=== PATIENT | female | born 1990 | race Caucasian/White ===

== ENCOUNTER 2016-06-11 14:01 | Emergency (ER) | payer MEDICAID ==
[2016-06-11] MEDS ORDERED: NORMAL SALINE 1000 ML 1,000 ML IV PRN (14:34)
--- NOTE | 2016-06-11 14:34 | ER Document Report ---
ED Medical Screen (RME) - General Chief Complaint: Nausea/Vomiting Stated Complaint: STOMACH PAIN Notes: This 26-year-old female presented to the emergency room with cough generalized aches pains nausea vomiting since last p.m. she states that she feels as though she may have the flu. TRAVEL OUTSIDE OF THE [place] IN LAST 30 DAYS: No - Related Data Allergies/Adverse Reactions: latex [Latex] Allergy (Severe, Verified 06/11/16 14:31) Hives hydrocodone bitartrate [From Vicodin] Allergy (Intermediate, Verified 06/11/16 14:31) VOMITING,hives Past Medical History - Social History Chew tobacco use (# tins/day): No Frequency of alcohol use: None Drug Abuse: None - Past Medical History Cardiac Medical History: Denies: Hx Hypertension, Hx Pulmonary Embolism, Hx Heart Murmur Pulmonary Medical History: Denies: Hx Asthma, Hx Sleep Apnea, Hx Tuberculosis Neurological Medical History: Denies: Hx Cerebrovascular Accident, Hx Seizures Endocrine Medical History: Denies: Hx Hyperthyroidism, Hx Hypothyroidism Renal/ Medical History: Reports: Hx Kidney Stones - litho. Denies: Hx Ovarian Cysts, Hx Peritoneal Dialysis, Hx Pelvic Inflammatory Disease Malignancy Medical History: Denies: Hx Breast Cancer, Hx Cervical Cancer, Hx Ovarian Cancer GI Medical History: Reports: Hx Gastroesophageal Reflux Disease - with . Denies: Hx Hiatal Hernia, Hx Ulcer Musculoskeltal Medical History: Denies Hx Fibromyalgia Psychiatric Medical History: Denies: Hx Bipolar Disorder, Hx Depression, Hx Post Traumatic Stress Disorder , Hx Schizophrenia Traumatic Medical History: Denies: Hx Fractures Infectious Medical History: Denies: Hx HIV - Immunizations Immunizations up to date: Yes Hx Diphtheria, Pertussis, Tetanus Vaccination: No Physical Exam - Cardiovascular Rhythm: Tachycardia Heart sounds: Normal auscultation - Tachycardia
--- NOTE | 2016-06-11 16:19 | ER Document Report ---
ED General - General Chief Complaint: Nausea/Vomiting Stated Complaint: STOMACH PAIN Mode of Arrival: Ambulatory Information source: Patient Notes: This is a 26-year-old female who presents to the emergency room today stating that she feels as though she has a stomach virus/pretension leave the flu she's been nauseated has had a low-grade fever and she was vomiting through the evening last night 3. TRAVEL OUTSIDE OF THE [place] IN LAST 30 DAYS: No - HPI Onset: This morning - Related Data Allergies/Adverse Reactions: latex [Latex] Allergy (Severe, Verified 06/11/16 14:31) Hives hydrocodone bitartrate [From Vicodin] Allergy (Intermediate, Verified 06/11/16 14:31) VOMITING,hives Past Medical History - General Information source: Patient - Social History Smoking Status: Never Smoker Chew tobacco use (# tins/day): No Frequency of alcohol use: None Drug Abuse: None Family History: Reviewed & Not Pertinent Patient has suicidal ideation: No Patient has homicidal ideation: No - Past Medical History Cardiac Medical History: Denies: Hx Hypertension, Hx Pulmonary Embolism, Hx Heart Murmur Pulmonary Medical History: Denies: Hx Asthma, Hx Sleep Apnea, Hx Tuberculosis Neurological Medical History: Denies: Hx Cerebrovascular Accident, Hx Seizures Endocrine Medical History: Denies: Hx Hyperthyroidism, Hx Hypothyroidism Renal/ Medical History: Reports: Hx Kidney Stones - litho. Denies: Hx Ovarian Cysts, Hx Peritoneal Dialysis, Hx Pelvic Inflammatory Disease Malignancy Medical History: Denies: Hx Breast Cancer, Hx Cervical Cancer, Hx Ovarian Cancer GI Medical History: Reports: Hx Gastroesophageal Reflux Disease - with . Denies: Hx Hiatal Hernia, Hx Ulcer Musculoskeltal Medical History: Denies Hx Fibromyalgia Psychiatric Medical History: Denies: Hx Bipolar Disorder, Hx Depression, Hx Post Traumatic Stress Disorder , Hx Schizophrenia Traumatic Medical History: Denies: Hx Fractures Infectious Medical History: Denies: Hx HIV - Immunizations Immunizations up to date: Yes Hx Diphtheria, Pertussis, Tetanus Vaccination: No Review of Systems - Review of Systems Constitutional: No symptoms reported EENT: No symptoms reported Cardiovascular: No symptoms reported Respiratory: No symptoms reported Gastrointestinal: No symptoms reported Genitourinary: No symptoms reported Female Genitourinary: No symptoms reported Musculoskeletal: No symptoms reported Skin: No symptoms reported Hematologic/Lymphatic: No symptoms reported Neurological/Psychological: No symptoms reported Physical Exam - Vital signs Vitals: Pulse 98 06/11/16 16:08 Interpretation: Normal - General General appearance: Appears well, Alert - HEENT Head: Normocephalic, Atraumatic Eyes: Normal Pupils: PERRL - Respiratory Respiratory status: No respiratory distress Chest status: Nontender Breath sounds: Normal Chest palpation: Normal - Cardiovascular Rhythm: Regular Heart sounds: Normal auscultation Murmur: No - Abdominal Inspection: Normal Distension: No distension Bowel sounds: Normal Tenderness: Nontender Organomegaly: No organomegaly - Back Back: Normal, Nontender - Extremities General upper extremity: Normal inspection, Nontender, Normal color, Normal ROM , Normal temperature General lower extremity: Normal inspection, Nontender, Normal color, Normal ROM , Normal temperature, Normal weight bearing. No: Gustavo's sign - Neurological Neuro grossly intact: Yes Cognition: Normal Orientation: AAOx4 Reeds Coma Scale Eye Opening: Spontaneous Himanshu Coma Scale Verbal: Oriented Reeds Coma Scale Motor: Obeys Commands Himanshu Coma Scale Total: 15 Speech: Normal Motor strength normal: LUE, RUE, LLE, RLE Sensory: Normal - Psychological Associated symptoms: Normal affect, Normal mood - Skin Skin Temperature: Warm Skin Moisture: Dry Skin Color: Normal Course - Vital Signs Vital signs: Temp Pulse Resp BP Pulse Ox 98 06/11/16 16:08 - Transfer of Care Notes: 06/11/16 16:17 Patient feels better here in the department she did have a pulse of 116 1 L of fluid was ordered patient refused the fluids and stated she'd rather oral orally rehydrate which is what she had done here in the department she is not experiencing nausea or emesis be discharged with follow-up with her PMD in 2-3 days. Discharge - Discharge Clinical Impression: Nausea & vomiting Disposition: HOME, SELF-CARE Instructions: Vomiting ([facility]) Additional Instructions: Vomiting Vomiting can be part of many illnesses. Most cases of vomiting are due to gastroenteritis, usually a viral infection in the intestinal tract. There is no specific treatment. The disease will end by itself. For now, the main danger to your child is dehydration. During the first few hours of the illness, give clear liquids, such as Pedialyte. Try to give small quantities frequently, such as a teaspoon of liquid every minute or about an ounce of fluids every five to ten minutes. Medications may be prescribed by the physician for special cases. After an hour or two of fluids without vomiting, add rice cereal, toast, applesauce, or bananas and other more solid foods to the clear liquids. Call the physician or go to the hospital if vomiting increases or blood appears in the bowel movement or vomitus; if your child fails to improve, or if signs of dehydration occur (no wet diapers for eight to twelve hours, tongue and mouth become dry, not acting as alert as usual). Follow-up with private doctor in 1 to 2 days for final radiology readings please return to the emergency room for any change worsening condition. Follow up with private M.D. for all other routine health care needs. Prescriptions: Ondansetron [Zofran Odt 4 mg Tablet] 1 - 2 tab PO Q4H PRN #15 tab.rapdis PRN Reason: For Nausea/Vomiting
[2016-06-11 17:18] VITALS: BP 106/61
== END 2016-06-11 17:05 | disposition home or self-care (01) ==
LOC: ER 14:01
DX: R11.2 Nausea with vomiting, unspecified (principal); R50.9 Fever, unspecified; Z91.040 Latex allergy status; Z88.5 Allergy status to narcotic agent; Z87.442 Personal history of urinary calculi
CPT/HCPCS: 99284; 87804; J7030

== ENCOUNTER 2017-01-09 12:32 | Emergency (ER) | payer MEDICAID ==
--- NOTE | 2017-01-09 13:14 | ER Document Report ---
ED Medical Screen (RME) - General Chief Complaint: Abdominal Pain Stated Complaint: ABDOMINAL PAIN Time Seen by Provider: 01/09/17 13:12 Mode of Arrival: Ambulatory Information source: Patient Notes: This is a 26-year-old female who presents to the emergency room with left adnexal tenderness and swelling. Patient's last period was a month ago. She has taken multiple tests which have been negative. She denies any vaginal discharge. She denies any fever, chills. TRAVEL OUTSIDE OF THE [place] IN LAST 30 DAYS: No - Related Data Allergies/Adverse Reactions: latex [Latex] Allergy (Severe, Verified 01/09/17 12:38) Hives hydrocodone bitartrate [From Vicodin] Allergy (Intermediate, Verified 01/09/17 12:38) VOMITING,hives Past Medical History - Past Medical History Cardiac Medical History: Denies: Hx Hypertension, Hx Pulmonary Embolism, Hx Heart Murmur Pulmonary Medical History: Denies: Hx Asthma, Hx Sleep Apnea, Hx Tuberculosis Neurological Medical History: Denies: Hx Cerebrovascular Accident, Hx Seizures Endocrine Medical History: Denies: Hx Hyperthyroidism, Hx Hypothyroidism Renal/ Medical History: Reports: Hx Kidney Stones - litho. Denies: Hx Ovarian Cysts, Hx Peritoneal Dialysis, Hx Pelvic Inflammatory Disease Malignancy Medical History: Denies: Hx Breast Cancer, Hx Cervical Cancer, Hx Ovarian Cancer GI Medical History: Reports: Hx Gastroesophageal Reflux Disease - with . Denies: Hx Hiatal Hernia, Hx Ulcer Musculoskeltal Medical History: Denies Hx Fibromyalgia Psychiatric Medical History: Denies: Hx Bipolar Disorder, Hx Depression, Hx Post Traumatic Stress Disorder , Hx Schizophrenia Traumatic Medical History: Denies: Hx Fractures Infectious Medical History: Denies: Hx HIV - Immunizations Immunizations up to date: Yes Hx Diphtheria, Pertussis, Tetanus Vaccination: No Physical Exam - Vital signs Vitals: Temp Pulse Resp BP Pulse Ox 98.0 F 97 20 120/51 L 93 01/09/17 12:37 01/09/17 12:37 01/09/17 12:37 01/09/17 12:37 01/09/17 12:37 Course - Vital Signs Vital signs: Temp Pulse Resp BP Pulse Ox 98.0 F 97 20 120/51 L 93 01/09/17 12:37 01/09/17 12:37 01/09/17 12:37 01/09/17 12:37 01/09/17 12:37
[2017-01-09 13:53] LABS: AMORPHOUS SEDIMENT,URINE TRACE /HPF; APPEARANCE,URINE CLOUDY; BILIRUBIN,URINE NEGATIVE (NEGATIVE); GLUCOSE, URINE NEGATIVE (NEGATIVE); KETONES,URINE NEGATIVE (NEGATIVE); LEUKOCYTE ESTERASE,URINE NEGATIVE (NEGATIVE); NITRITE,URINE NEGATIVE (NEGATIVE); PROTEIN,URINE NEGATIVE (NEGATIVE); URINE SPECIFIC GRAVITY 1.017; UROBILINOGEN,URINE NEGATIVE mg/dL (<2.0)
--- NOTE | 2017-01-09 14:36 | ER Document Report ---
ED GI/ - General Chief Complaint: Abdominal Pain Stated Complaint: ABDOMINAL PAIN Time Seen by Provider: 01/09/17 13:12 Mode of Arrival: Ambulatory Information source: Patient TRAVEL OUTSIDE OF THE [place] IN LAST 30 DAYS: No - HPI Patient complains to provider of: Pelvic pain Timing/Duration: Persistent Quality of pain: Sharp, Stabbing Severity at maximum: Moderate Severity in ED: Moderate Pain Level: 3 Location: LLQ, Pelvis Vaginal bleeding (Compared to normal period): None Associated symptoms: None Exacerbated by: Denies Relieved by: Denies Similar symptoms previously: No Recently seen / treated by doctor: No Notes: 01/09/17 16:15 Patient is a 26-year-old female presenting to the emergency room complaining of sharp stabbing left sided pelvic pain that started earlier today, she reports that she is currently late for her menstrual cycle, with a last menstrual period being 1.5 months ago, she took 3 home tests and they were negative, she does report a history of ovarian cyst with similar symptoms previously, reports a clear vaginal discharge, no vaginal bleeding, no fever, does have occasional nausea associated with pain - Related Data Allergies/Adverse Reactions: latex [Latex] Allergy (Severe, Verified 01/09/17 12:38) Hives hydrocodone bitartrate [From Vicodin] Allergy (Intermediate, Verified 01/09/17 12:38) VOMITING,hives Past Medical History - General Information source: Patient - Social History Smoking Status: Never Smoker Chew tobacco use (# tins/day): No Frequency of alcohol use: None Drug Abuse: None Family History: Reviewed & Not Pertinent - Past Medical History Cardiac Medical History: Denies: Hx Hypertension, Hx Pulmonary Embolism, Hx Heart Murmur Pulmonary Medical History: Denies: Hx Asthma, Hx Sleep Apnea, Hx Tuberculosis Neurological Medical History: Denies: Hx Cerebrovascular Accident, Hx Seizures Endocrine Medical History: Denies: Hx Hyperthyroidism, Hx Hypothyroidism Renal/ Medical History: Reports: Hx Kidney Stones - litho. Denies: Hx Ovarian Cysts, Hx Peritoneal Dialysis, Hx Pelvic Inflammatory Disease Malignancy Medical History: Denies: Hx Breast Cancer, Hx Cervical Cancer, Hx Ovarian Cancer GI Medical History: Reports: Hx Gastroesophageal Reflux Disease - with . Denies: Hx Hiatal Hernia, Hx Ulcer Musculoskeltal Medical History: Denies Hx Fibromyalgia Psychiatric Medical History: Denies: Hx Bipolar Disorder, Hx Depression, Hx Post Traumatic Stress Disorder , Hx Schizophrenia Traumatic Medical History: Denies: Hx Fractures Infectious Medical History: Denies: Hx HIV Past Surgical History: Reports: Hx Section - Immunizations Immunizations up to date: Yes Hx Diphtheria, Pertussis, Tetanus Vaccination: No Review of Systems - Review of Systems Constitutional: No symptoms reported EENT: No symptoms reported Cardiovascular: No symptoms reported Respiratory: No symptoms reported Gastrointestinal: See HPI Genitourinary: No symptoms reported Female Genitourinary: See HPI Musculoskeletal: No symptoms reported Skin: No symptoms reported Hematologic/Lymphatic: No symptoms reported Neurological/Psychological: No symptoms reported -: Yes All other systems reviewed and negative Physical Exam - Vital signs Vitals: Temp Pulse Resp BP Pulse Ox 98.0 F 97 20 120/51 L 93 01/09/17 12:37 01/09/17 12:37 01/09/17 12:37 01/09/17 12:37 01/09/17 12:37 Interpretation: Normal - General General appearance: Appears well, Alert - HEENT Head: Normocephalic, Atraumatic Eyes: Normal Pupils: PERRL - Respiratory Respiratory status: No respiratory distress Chest status: Nontender Breath sounds: Normal Chest palpation: Normal - Cardiovascular Rhythm: Regular Heart sounds: Normal auscultation Murmur: No - Abdominal Inspection: Normal Distension: No distension Bowel sounds: Normal Tenderness: Tender - Tender to palpate in suprapubic area, mainly left side Organomegaly: No organomegaly - Back Back: Normal, Nontender - Extremities General upper extremity: Normal inspection, Nontender, Normal color, Normal ROM , Normal temperature General lower extremity: Normal inspection, Nontender, Normal color, Normal ROM , Normal temperature, Normal weight bearing. No: Gustavo's sign - Neurological Neuro grossly intact: Yes Cognition: Normal Orientation: AAOx4 Himanshu Coma Scale Eye Opening: Spontaneous [place] Coma Scale Verbal: Oriented [place] Coma Scale Motor: Obeys Commands Himanshu Coma Scale Total: 15 Speech: Normal Motor strength normal: LUE, RUE, LLE, RLE Sensory: Normal - Psychological Associated symptoms: Normal affect, Normal mood - Skin Skin Temperature: Warm Skin Moisture: Dry Skin Color: Normal Course - Re-evaluation Re-evalutation: 01/09/17 16:17 Lab and imaging findings were discussed with patient at bedside which are unremarkable except for a right-sided ovarian cyst, patient was offered pain medication which she declined, advised to follow-up with her primary care provider or return if symptoms worsen, patient acknowledges understanding and agreement with this plan - Vital Signs Vital signs: Temp Pulse Resp BP Pulse Ox 98.0 F 97 20 120/51 L 93 01/09/17 12:37 01/09/17 12:37 01/09/17 12:37 01/09/17 12:37 01/09/17 12:37 - Laboratory Laboratory results interpreted by me: 01/09/17 13:20 Urine Ascorbic Acid 20 H - Diagnostic Test Radiology reviewed: Image reviewed, Reports reviewed Discharge - Discharge Clinical Impression: Ovarian cyst Qualifiers: Laterality: right Qualified Code(s): N83.201 - Unspecified ovarian cyst, right side Condition: Stable Disposition: HOME, SELF-CARE Instructions: Abdominal Pain ([facility]), Pelvic Pain ([facility]) Additional Instructions: Follow up with your primary care provider in one to 2 days. Return to the emergency room immediately if symptoms worsen or any additional concerns.
--- NOTE | 2017-01-09 15:20 | RADIOLOGY REPORT (SQ) ---
EXAM DESCRIPTION: U/S NON OB PEL TV W/DOPPLER COMPLETED DATE/TIME: 01/09/2017 3:03 pm REASON FOR STUDY: left adnexal pain COMPARISON: None. TECHNIQUE: Dynamic and static grayscale images acquired of the pelvis via transvaginal approach and recorded on PACS. Additional selected color Doppler and spectral images recorded. LIMITATIONS: None. FINDINGS: UTERUS: Contour normal. No mass. ENDOMETRIAL STRIPE: No focal or generalized thickening. No masses. CERVIX: 3.5 cm. No nabothian cysts. RIGHT OVARY: There is at the 14 x 13 x 17 mm hypoechoic area in the right ovary. RIGHT OVARY DOPPLER: Normal arterial vascular flow without evidence for torsion. LEFT OVARY: No abnormal masses. LEFT OVARY DOPPLER: Normal arterial vascular flow without evidence for torsion. FREE FLUID: None noted. OTHER: No other significant finding. MEASUREMENTS: UTERUS: 9.6 x 5.6 x 4.5 cm ENDOMETRIAL STRIPE: 10 mm RIGHT OVARY: 5.3 x 2.5 x 2.9 cm LEFT OVARY: 2.4 x 1.8 x 3.2 cm IMPRESSION: There appears to be a small right ovarian cyst. Blood flow was present to each ovary. TECHNICAL DOCUMENTATION: JOB ID: [id number] [employer]- All Rights Reserved
[2017-01-09 16:34] VITALS: BP 115/102
== END 2017-01-09 16:25 | disposition home or self-care (01) ==
LOC: ER 12:32
DX: N83.201 Unspecified ovarian cyst, right side (principal); R10.9 Unspecified abdominal pain; R10.2 Pelvic and perineal pain
CPT/HCPCS: 76830; 81001; 81025; 93976; 99284

== ENCOUNTER 2017-07-28 18:10 | Emergency (ER) | payer SELFPAY ==
[2017-07-28] MEDS ORDERED: LIDOCAINE 2% VISCOUS SOLN 20 ML UDCUP PO ONE (20:50)
[2017-07-28] MEDS ORDERED: IBUPROFEN 800 MG TABLET PO ONE (20:50)
--- NOTE | 2017-07-28 20:56 | ER Document Report ---
HPI - HPI Patient complains to provider of: Sore throat, rhinitis Pain Level: 2 Context: Patient is a 27-year-old female presents emergency department complaining of multiple days of sore throat with associated runny nose. She states that she wanted to be evaluated for strep and she had a recent sick contact. Otherwise she has been taking TheraFlu at home with moderate improvement in her symptoms. She admits to subjective fevers denies any chills. She denies any nausea, vomiting, swelling, abdominal pain, chest pain. - REPRODUCTIVE Reproductive: DENIES: : Past Medical History - Social History Smoking Status: Smoker,Current Status Unk Family History: Reviewed & Not Pertinent - Past Medical History Cardiac Medical History: Denies: Hx Hypertension, Hx Pulmonary Embolism, Hx Heart Murmur Pulmonary Medical History: Denies: Hx Asthma, Hx Sleep Apnea, Hx Tuberculosis Neurological Medical History: Denies: Hx Cerebrovascular Accident, Hx Seizures Endocrine Medical History: Denies: Hx Hyperthyroidism, Hx Hypothyroidism Renal/ Medical History: Reports: Hx Kidney Stones - litho. Denies: Hx Ovarian Cysts, Hx Peritoneal Dialysis, Hx Pelvic Inflammatory Disease Malignancy Medical History: Denies: Hx Breast Cancer, Hx Cervical Cancer, Hx Ovarian Cancer GI Medical History: Reports: Hx Gastroesophageal Reflux Disease - with . Denies: Hx Hiatal Hernia, Hx Ulcer Musculoskeltal Medical History: Denies Hx Fibromyalgia Psychiatric Medical History: Denies: Hx Bipolar Disorder, Hx Depression, Hx Post Traumatic Stress Disorder , Hx Schizophrenia Traumatic Medical History: Denies: Hx Fractures Infectious Medical History: Denies: Hx HIV Past Surgical History: Reports: Hx Section - Immunizations Immunizations up to date: Yes Hx Diphtheria, Pertussis, Tetanus Vaccination: No Vertical Provider Document - CONSTITUTIONAL Agree With Documented VS: Yes Notes: PHYSICAL EXAM GENERAL: Alert, interacts well. HEENT: NCAT, pale conjunctiva, extraocular movements intact, pupils PERRL. external ear normal, no evidence of external auditory canal tenderness, blood/ drainage, cerumen impaction, TM intact without evidence of effusion, bulging, injection, MMM, Uvula midline. Airway patent. No evidence of tonsillar enlargement, peritonsillar abscess, retropharyngeal abscess. LUNGS: Clear to auscultation bilaterally, no wheezes, rales, or rhonchi. No respiratory distress. HEART: Regular rate and rhythm. No murmurs, gallops, or rubs. ABDOMEN: Soft, nondistended, nontender. No guarding, rebound, or rigidity.. Bowel sounds present in all 4 quadrants. EXTREMITIES: Moves all 4 extremities spontaneously. No edema, radial and dorsalis pedis pulses 2/4 bilaterally. No cyanosis. NEUROLOGICAL: Alert and oriented x4. Normal speech. PSYCH: Normal affect, normal mood. SKIN: Warm, dry, normal turgor. No rashes or lesions noted. - INFECTION CONTROL TRAVEL OUTSIDE OF THE [place] IN LAST 30 DAYS: No - RESPIRATORY O2 Sat by Pulse Oximetry: 100 Course - Re-evaluation Re-evalutation: 07/28/17 20:55 Patient is a 27-year-old female is hemodynamically stable, no acute distress and afebrile. Presentation is most consistent with a viral upper respiratory infection. Patient is overall well appearance, vitals within normal limits, well-hydrated. Patient denies any headache, neck pain, and has no evidence of meningismus on examination. Lungs are clear bilaterally. No evidence of respiratory distress. Based on clinical exam and history, I do not suspect an acute pneumonia, meningitis, strep pharyngitis, or an acute encephalitis. No laboratory or imaging testing is indicated at this time. Will discharge patient with return precautions and followup recommendations. They are in agreement this plan have verbalized understanding return precautions. - Vital Signs Vital signs: Temp Pulse Resp BP Pulse Ox 98.9 F 75 16 112/73 100 07/28/17 18:38 07/28/17 18:38 07/28/17 18:38 07/28/17 18:38 07/28/17 18:38 Discharge - Discharge Clinical Impression: URI (upper respiratory infection) Qualifiers: URI type: unspecified viral URI Qualified Code(s): J06.9 - Acute upper respiratory infection, unspecified Condition: Good Disposition: HOME, SELF-CARE Additional Instructions: Your symptoms are most likely due to a viral infection it should resolve over the next 7-14 days. You should take [id number] Claritin-D or Neelam-D per bottle instructions to help relieve from nasal secretions and congestion. For nasal congestion: I would recommend that you get [id number] oxymetazoline also known is afrin. Use only per bottle instructions and be sure to never use this for more than 3 days if you can develop severe rebound congestion. You may also use tylenol or ibuprofen as needed for aches and thorat discomfort. Please be sure to drink plenty of fluids and get rest. Return to the emergency department he began having difficulty breathing, chest pain, persistent vomiting, or any other symptoms that are concerning to you. Forms: Return to Work Referrals: MARISA BAUTISTA MD [ACTIVE STAFF] - Follow up in 1 week
[2017-07-28 21:08] VITALS: BP 112/67
== END 2017-07-28 21:08 | disposition home or self-care (01) ==
LOC: ER 18:10
DX: J06.9 Acute upper respiratory infection, unspecified (principal); J02.9 Acute pharyngitis, unspecified; J31.0 Chronic rhinitis; R09.89 Other specified symptoms and signs involving the circulatory and respiratory systems; R50.9 Fever, unspecified; F17.200 Nicotine dependence, unspecified, uncomplicated
CPT/HCPCS: 99283; 87070; 87880; J3490

== ENCOUNTER 2017-11-15 14:28 | Emergency (ER) | payer SELFPAY ==
[2017-11-15 14:36] VITALS: BP 122/71
[2017-11-15] MEDS ORDERED: ALBUTEROL SULFATE 0.083% NEB 2.5 MG/3 ML AMPUL NEB ONE (14:52)
--- NOTE | 2017-11-15 14:52 | ER Document Report ---
HPI - HPI Patient complains to provider of: Cough and nasal congestion Onset: Last week Onset/Duration: Gradual Pain Level: 2 Context: 27-year-old is complaining of nasal congestion and cough for a week. She has been working every day. No chest pain or shortness of breath. No history of asthma. No sinus pain. Associated Symptoms: None Exacerbated by: Denies Relieved by: Denies - ROS ROS below otherwise negative: Yes Systems Reviewed and Negative: Yes All other systems reviewed and negative - REPRODUCTIVE Reproductive: DENIES: : Past Medical History - General Information source: Patient - Social History Smoking Status: Unknown if Ever Smoked Drug Abuse: None Lives with: Family Family History: Reviewed & Not Pertinent Renal/ Medical History: Reports: Hx Kidney Stones - litho GI Medical History: Reports: Hx Gastroesophageal Reflux Disease - with Past Surgical History: Reports: Hx Section - Immunizations Immunizations up to date: Yes Hx Diphtheria, Pertussis, Tetanus Vaccination: No Vertical Provider Document - CONSTITUTIONAL Agree With Documented VS: Yes Exam Limitations: No Limitations General Appearance: No Apparent Distress - INFECTION CONTROL TRAVEL OUTSIDE OF THE [place] IN LAST 30 DAYS: No - HEENT HEENT: Pharyngeal Erythema - Normal. negative: Conjuctival Injection, Tympanic Membrane Red, Tympanic Membrane Bulging Notes: Boggy naris, nontender sinus - NECK Neck: Supple - RESPIRATORY Respiratory: Breath Sounds Normal, No Respiratory Distress - CARDIOVASCULAR Cardiovascular: Regular Rate, Regular Rhythm - NEURO Level of Consciousness: Alert - DERM Integumentary: No Rash Course - Re-evaluation Re-evalutation: 11/15/17 Patient states that the albuterol nebulizer helped a little bit and she feels like she can breathe easier. - Vital Signs Vital signs: Temp Pulse Resp BP Pulse Ox 98.5 F 74 18 122/71 100 11/15/17 14:33 11/15/17 14:33 11/15/17 14:33 11/15/17 14:33 11/15/17 14:33 Discharge - Discharge Clinical Impression: Bronchitis Condition: Good Disposition: HOME, SELF-CARE Instructions: Bronchitis ([facility]), Bronchodilators ([facility]) Additional Instructions: Drink plenty of fluids Rest Use the albuterol metered-dose inhaler every 4 hours cough Return to the emergency room for worsening of the symptoms Prescriptions: Albuterol Sulfate [Proair HFA Inhalation Aerosol 8.5 gm MDI] 2 puff IH Q3HP PRN #1 hfa.[id number].[email or web address] PRN Reason: Forms: Return to Work
== END 2017-11-15 15:34 | disposition home or self-care (01) ==
LOC: ER 14:28
DX: J40 Bronchitis, not specified as acute or chronic (principal)
CPT/HCPCS: 94640; 99283

== ENCOUNTER 2018-11-14 17:19 | Emergency (ER) | payer OTHER ==
[2018-11-14 17:24] VITALS: BP 128/76
[2018-11-14] MEDS ORDERED: IBUPROFEN 600 MG TABLET PO ONE (17:32)
--- NOTE | 2018-11-14 17:33 | ER Document Report ---
Addendum entered and electronically signed by YURI WOOD NP 11/14/18 18:57: Discharge - Discharge Clinical Impression: Right ankle sprain Qualifiers: Encounter type: initial encounter Involved ligament of ankle: unspecified ligament Qualified Code(s): S93.401A - Sprain of unspecified ligament of right ankle, initial encounter Condition: Stable Disposition: HOME, SELF-CARE Instructions: Ankle Stirrup Splint ([facility]), Use of Crutches ([facility]), Ice & Elevation ([facility]), Sprained Ankle ([facility]) Additional Instructions: Return immediately for any new or worsening symptoms Followup with your primary care provider, call tomorrow to make a followup appointment Weightbearing as tolerated Follow-up with orthopedics for any persistent pain or problems Prescriptions: Naproxen [Naprosyn 250 Nmg Tablet] 1 tab PO BID #14 tablet Forms: Return to Work Referrals: [facility] ([facility]) [Provider Group] - Follow up as needed Original Note: HPI - HPI Patient complains to provider of: ankle injury Time Seen by Provider: 11/14/18 17:28 Onset: Yesterday Onset/Duration: Sudden Quality of pain: Achy Pain Level: 2 Context: Patient reports yesterday slipping on water and hitting her ankle against a refrigerator. Patient with mild abrasion overlying the right ankle. Patient complains of lateral ankle pain with walking. Associated Symptoms: Other - r ankle pain Exacerbated by: Standing, Walking Relieved by: Denies Similar symptoms previously: No Recently seen / treated by doctor: No - ROS ROS below otherwise negative: Yes Systems Reviewed and Negative: Yes All other systems reviewed and negative - NEURO Neurology: DENIES: Weakness - REPRODUCTIVE Reproductive: DENIES: : - MUSCULOSKELETAL Musculoskeletal: REPORTS: Extremity pain - DERM Skin Color: Normal Skin Problems: Abrasion Past Medical History - General Information source: Patient - Social History Smoking Status: Never Smoker Frequency of alcohol use: None Drug Abuse: None Occupation: Retail Family History: Reviewed & Not Pertinent Renal/ Medical History: Reports: Hx Kidney Stones - litho GI Medical History: Reports: Hx Gastroesophageal Reflux Disease - with Past Surgical History: Reports: Hx Section - Immunizations Immunizations up to date: Yes Hx Diphtheria, Pertussis, Tetanus Vaccination: No Vertical Provider Document - CONSTITUTIONAL Agree With Documented VS: Yes Exam Limitations: No Limitations General Appearance: WD/WN, No Apparent Distress - INFECTION CONTROL TRAVEL OUTSIDE OF THE [place] IN LAST 30 DAYS: No - HEENT HEENT: Atraumatic, Normocephalic - NECK Neck: Normal Inspection - RESPIRATORY Respiratory: No Respiratory Distress - CARDIOVASCULAR Pulses: Normal: Dorsalis pedis - MUSCULOSKELETAL/EXTREMETIES Musculoskeletal/Extremeties: MAEW, FROM, Tender - Right ankle tenderness over lateral malleolar area, no edema, mild abrasion, no surrounding erythema - NEURO Level of Consciousness: Awake, Alert, Appropriate Motor/Sensory: No Motor Deficit - DERM Integumentary: Warm, Dry Course - Re-evaluation Re-evalutation: 11/14/18 18:18 Patient refused crutches. - Vital Signs Vital signs: Temp Pulse Resp BP Pulse Ox 98.3 F 85 18 128/76 H 100 11/14/18 17:23 11/14/18 17:23 11/14/18 17:23 11/14/18 17:23 11/14/18 17:23 - Diagnostic Test Radiology reviewed: Pending, Image reviewed Procedures - Immobilization Right Ankle Pre-Proc Neuro Vasc Exam: Normal Immobilizer type: Ankle stirrup Performed by: PCT Post-Proc Neuro Vasc Exam: Normal Alignment checked and good: Yes Discharge - Discharge Clinical Impression: Right ankle sprain Qualifiers: Encounter type: initial encounter Involved ligament of ankle: unspecified ligament Qualified Code(s): S93.401A - Sprain of unspecified ligament of right ankle, initial encounter Condition: Stable Disposition: HOME, SELF-CARE Instructions: Ankle Stirrup Splint ([facility]), Use of Crutches ([facility]), Ice & Elevation ([facility]), Sprained Ankle ([facility]) Additional Instructions: Return immediately for any new or worsening symptoms Followup with your primary care provider, call tomorrow to make a followup appointment Weightbearing as tolerated Follow-up with orthopedics for any persistent pain or problems Prescriptions: Naproxen [Naprosyn 250 Nmg Tablet] 1 tab PO BID #14 tablet Referrals: [facility] ([facility] [Provider Group] - Follow up as needed
--- NOTE | 2018-11-14 18:03 | RADIOLOGY REPORT (SQ) ---
EXAM DESCRIPTION: ANKLE RIGHT COMPLETE COMPLETED DATE/TIME: 11/14/2018 5:50 pm REASON FOR STUDY: fall, r ankle pain COMPARISON: None. NUMBER OF VIEWS: Three views. TECHNIQUE: AP, lateral, and oblique radiographic images acquired of the right ankle. LIMITATIONS: None. FINDINGS: MINERALIZATION: Normal. BONES: No acute fracture or dislocation. No worrisome bone lesions. JOINTS: No effusions. SOFT TISSUES: No soft tissue swelling. No foreign body. OTHER: No other significant finding. IMPRESSION: NEGATIVE STUDY OF THE RIGHT ANKLE. NO RADIOGRAPHIC EVIDENCE OF ACUTE INJURY. TECHNICAL DOCUMENTATION: JOB ID: [id number] [employer]- All Rights Reserved Reading location - IP/workstation name: [email or web address]
== END 2018-11-14 18:14 | disposition home or self-care (01) ==
LOC: ER 17:19
DX: S93.401A Sprain of unspecified ligament of right ankle, initial encounter (principal); W22.09XA Striking against other stationary object, initial encounter; Y99.0 Civilian activity done for income or pay
CPT/HCPCS: 99283; 73610; L1902

== ENCOUNTER 2019-01-20 14:36 | Emergency (ER) | payer SELFPAY ==
[2019-01-20] MEDS ORDERED: IBUPROFEN 800 MG TABLET PO ONE (16:15)
[2019-01-20] MEDS ORDERED: PSEUDOEPHEDRINE HCL 30 MG TABLET PO ONE (16:15)
--- NOTE | 2019-01-20 16:16 | ER Document Report ---
HPI - HPI Patient complains to provider of: cold symptoms Time Seen by Provider: 01/20/19 16:10 Onset: Yesterday Onset/Duration: Gradual Quality of pain: Achy Pain Level: 3 Context: Patient presents complaining of cold or flu symptoms. Patient states she has had voice hoarseness body aches sore throat ear pain and productive cough since yesterday. Associated Symptoms: Nonproductive cough, Earache, Fever, Rhinnorhea, Sore throat. denies: Nausea, Vomiting Exacerbated by: Denies Relieved by: Denies Similar symptoms previously: Yes Recently seen / treated by doctor: No - ROS ROS below otherwise negative: Yes Systems Reviewed and Negative: Yes All other systems reviewed and negative - CONSTITUTIONAL Constitutional: REPORTS: Fever - subjective, Chills - EENT EENT: REPORTS: Sore Throat, Ear Pain, Nasal Drainage-Clear - NEURO Neurology: DENIES: Headache - RESPIRATORY Respiratory: REPORTS: Coughing. DENIES: Trouble Breathing - GASTROINTESTINAL Gastrointestinal: DENIES: Patient vomiting, Diarrhea - REPRODUCTIVE Reproductive: DENIES: : - DERM Skin Color: Normal Skin Problems: None Past Medical History - General Information source: Patient - Social History Smoking Status: Never Smoker Frequency of alcohol use: None Drug Abuse: None Occupation: retail Family History: Reviewed & Not Pertinent - Medical History Medical History: Negative Renal/ Medical History: Reports: Hx Kidney Stones - litho GI Medical History: Reports: Hx Gastroesophageal Reflux Disease - with Past Surgical History: Reports: Hx Section - Immunizations Immunizations up to date: Yes Hx Diphtheria, Pertussis, Tetanus Vaccination: No Vertical Provider Document - CONSTITUTIONAL Agree With Documented VS: No - Pt not tachycardic Exam Limitations: No Limitations General Appearance: WD/WN, No Apparent Distress - INFECTION CONTROL TRAVEL OUTSIDE OF THE [place] IN LAST 30 DAYS: No - HEENT HEENT: Atraumatic, Normocephalic, Pharyngeal Tenderness, Pharyngeal Erythema. negative: Pharyngeal Exudate, Tympanic Membrane Red, Tympanic Membrane Bulging Notes: clear rhinorrhea - NECK Neck: Normal Inspection, Supple - RESPIRATORY Respiratory: Breath Sounds Normal, No Respiratory Distress - CARDIOVASCULAR Cardiovascular: Regular Rate, Regular Rhythm, No Murmur. negative: Tachycardia - GI/ABDOMEN Gastrointestinal: Abdomen Soft - BACK Back: Normal Inspection - MUSCULOSKELETAL/EXTREMETIES Musculoskeletal/Extremeties: JENNIFER LIZ - NEURO Level of Consciousness: Awake, Alert, Appropriate Motor/Sensory: No Motor Deficit - DERM Integumentary: Warm, Dry, No Rash Course - Re-evaluation Re-evalutation: 01/20/19 17:22 Respirations even unlabored, patient nontoxic in appearance. Will treat for likely viral URI at this time. Good return precautions discussed. - Vital Signs Vital signs: Temp Pulse Resp BP Pulse Ox 99.1 F 100 18 112/70 100 01/20/19 15:52 01/20/19 15:52 01/20/19 15:52 01/20/19 15:52 01/20/19 15:52 - Laboratory Laboratory results interpreted by me: 01/20/19 17:20 Labs- Entire Visit 01/20/19 01/20/19 16:14 16:25 Influenza A (Rapid) NEGATIVE Influenza B (Rapid) NEGATIVE Group A Strep Rapid NEGATIVE Discharge - Discharge Clinical Impression: Sore throat Upper respiratory infection Qualifiers: URI type: unspecified URI Qualified Code(s): J06.9 - Acute upper respiratory infection, unspecified Condition: Stable Disposition: HOME, SELF-CARE Instructions: Acetaminophen, Sore Throat ([facility]), Upper Respiratory Illness ([facility]) Additional Instructions: Return immediately for any new or worsening symptoms Followup with your primary care provider, call tomorrow to make a followup appointment Throat culture is pending, we will call if you need any different treatment Prescriptions: Guaifenesin/Pseudoephedrne HCl [Mucinex D ER 1,200-120 mg Tab] 1 each PO Q12 PRN #12 tab.er.12h PRN Reason: Naproxen [Naprosyn 250 Nmg Tablet] 1 tab PO BID #14 tablet Forms: Return to Work Referrals: [facility] [Provider Group] - Follow up as needed [facility] [Provider Group] - Follow up as needed
[2019-01-20 17:11] LABS: A TYPE INFLUENZA AG NEGATIVE (NEGATIVE); B INFLUENZA AG NEGATIVE (NEGATIVE)
[2019-01-20 17:43] VITALS: BP 118/78
== END 2019-01-20 17:46 | disposition home or self-care (01) ==
LOC: ER 14:36
DX: J06.9 Acute upper respiratory infection, unspecified (principal); J02.9 Acute pharyngitis, unspecified; R49.0 Dysphonia; M79.10 Myalgia, unspecified site; H92.09 Otalgia, unspecified ear; R05 Cough; R09.89 Other specified symptoms and signs involving the circulatory and respiratory systems
CPT/HCPCS: 87070; 87804; 87880

== ENCOUNTER 2019-01-25 14:51 | Emergency (ER) | payer SELFPAY ==
[2019-01-25 15:01] VITALS: BP 116/69
--- NOTE | 2019-01-25 15:41 | ER Document Report ---
HPI - HPI Time Seen by Provider: 01/25/19 15:19 Pain Level: 4 Notes: Patient is a 28-year-old female no significant past medical history who presents complaining of nasal congestion/discharge, dry nonproductive cough over the past 6 days. She was seen 5 days ago and had a negative rapid strep and negative culture. She was diagnosed with a viral illness. Patient states that she has been using Mucinex with minimal relief. Patient states that she does have some hoarseness along with the cough and works 14-hour days and the cough is getting annoying. Patient is concerned that she may have pneumonia and wants an x-ray performed. She is otherwise eating and drinking without difficulty. She is urinating normally. Denies any headache, fever, neck pain, sore throat, chest pain, palpitations, syncope, shortness of breath, wheeze, dyspnea, abdominal pain, nausea/vomiting/diarrhea, urinary retention, dysuria, hematuria, or rash. - ROS Systems Reviewed and Negative: Yes All other systems reviewed and negative - CONSTITUTIONAL Constitutional: DENIES: Fever, Chills - REPRODUCTIVE Reproductive: DENIES: : Past Medical History - Social History Smoking Status: Former Smoker Family History: Reviewed & Not Pertinent Patient has suicidal ideation: No Patient has homicidal ideation: No - Past Medical History Cardiac Medical History: Denies: Hx Hypertension, Hx Pulmonary Embolism, Hx Heart Murmur Pulmonary Medical History: Denies: Hx Asthma, Hx Sleep Apnea, Hx Tuberculosis Neurological Medical History: Denies: Hx Cerebrovascular Accident, Hx Seizures Endocrine Medical History: Denies: Hx Hyperthyroidism, Hx Hypothyroidism Renal/ Medical History: Reports: Hx Kidney Stones - litho. Denies: Hx Ovarian Cysts, Hx Peritoneal Dialysis, Hx Pelvic Inflammatory Disease Malignancy Medical History: Denies: Hx Breast Cancer, Hx Cervical Cancer, Hx Ovarian Cancer GI Medical History: Reports: Hx Gastroesophageal Reflux Disease - with . Denies: Hx Hiatal Hernia, Hx Ulcer Musculoskeletal Medical History: Denies Hx Fibromyalgia Psychiatric Medical History: Denies: Hx Bipolar Disorder, Hx Depression, Hx Post Traumatic Stress Disorder, Hx Schizophrenia Traumatic Medical History: Denies: Hx Fractures Infectious Medical History: Denies: Hx HIV Past Surgical History: Reports: Hx Section - Immunizations Immunizations up to date: Yes Hx Diphtheria, Pertussis, Tetanus Vaccination: No Vertical Provider Document - CONSTITUTIONAL Agree With Documented VS: Yes Notes: PHYSICAL EXAMINATION: GENERAL: Well-appearing, well-nourished and in no acute distress. A&Ox4. Answers questions appropriately. Moves comfortably w/o notable distress HEAD: Atraumatic, normocephalic. EYES: Pupils equal round and reactive to light, extraocular movements intact, sclera anicteric, conjunctiva are normal. ENT: EAC clear b/l. TM's intact b/l without erythema, fluid, or perforation. Nares patent and without discharge. oropharynx no erythema without exudates. No tonsilar hypertrophy without erythema or exudate. No palatine shift. Uvula midline. No tongue protrusion. No drooling, hoarseness, or airway compromise. Moist mucous membranes. No sinus tenderness. NECK: Normal range of motion, supple without lymphadenopathy. No rigidity/meningismus. LUNGS: Breath sounds clear to auscultation bilaterally and equal. No wheezes rales or rhonchi. No retractions HEART: Regular rate and rhythm without murmurs, rubs, gallops. ABDOMEN: Soft, nontender, nondistended abdomen. No guarding, no rebound. Normal bowel sounds present. No CVA tenderness bilaterally. NEUROLOGICAL: Normal speech, normal gait. PSYCH: Normal mood, normal affect. SKIN: Warm, Dry, normal turgor, no rashes or lesions noted. - INFECTION CONTROL TRAVEL OUTSIDE OF THE [place] IN LAST 30 DAYS: No Course - Re-evaluation Re-evalutation: 01/25/19 Patient is an afebrile, well-hydrated, 28-year-old female who presents to the ED with acute URI, suspect viral. Vitals are acceptable. PE is otherwise unremarkable. Chest x-ray unremarkable. No other labs or imaging warranted at this time based on H&P. Patient has no significant cardiopulmonary or immunocompromised medical conditions. Patient's lungs are clear to auscultation bilaterally without tachycardia, hypoxia, or tachypnea. Patient is tolerating p.o. without any difficulties. Low suspicion for any meningitis, sepsis, peritonsillar/pharyngeal abscess, respiratory compromise, severe dehydration, or other emergent systemic condition at this time. Patient is aware this condition can change from initial presentation and she needs to monitor symptoms closely. We will send her home with prescription for Tessalon and steroid taper. Conservative measures otherwise for symptoms. Recheck with your PCM in 3-5 days. Return to the ED with any worsening/concerning symptoms otherwise as reviewed in discharge. Patient is in agreement. - Vital Signs Vital signs: Temp Pulse Resp BP Pulse Ox 98.6 F 73 16 116/69 100 01/25/19 15:00 01/25/19 15:00 01/25/19 15:00 01/25/19 15:00 01/25/19 15:00 Discharge - Discharge Clinical Impression: Acute URI Condition: Stable Disposition: HOME, SELF-CARE Instructions: Upper Respiratory Illness ([facility]) Additional Instructions: Maintain adequate fluid intake tylenol/ibuprofen as needed alternating every 3 hours for fever/body ache over the counter cold medication as needed for symptoms Humidified air may help Wash your hands regularly Wear a mask when coughing F/u: with your PCM in 3-5 days for a recheck Return to the ED with any fever, altered mental status/behavior, chest pain, palpitations, syncope, headache, neck pain/stiffness, shortness of breath, chest pains, wheezing, drooling, trouble swallowing/breathing, abdominal pain, n/v/d, rash, or worsening/concerning symptoms otherwise. Prescriptions: Benzonatate [Tessalon Perle 100 mg Capsule] 100 mg PO Q8HP PRN #15 cap PRN Reason: Prednisone [Deltasone 10 mg Tablet] 10 mg PO DAILY #18 tablet Forms: Return to Work Referrals: [facility] [Provider Group] - Follow up as needed
--- NOTE | 2019-01-25 16:10 | RADIOLOGY REPORT (SQ) ---
EXAM DESCRIPTION: CHEST 2 VIEWS COMPLETED DATE/TIME: 01/25/2019 3:59 pm REASON FOR STUDY: cough COMPARISON: 12/04/2014. EXAM PARAMETERS: NUMBER OF VIEWS: two views TECHNIQUE: Digital Frontal and Lateral radiographic views of the chest acquired. RADIATION DOSE: NA LIMITATIONS: none FINDINGS: LUNGS AND PLEURA: No opacities, masses or pneumothorax. No pleural effusion. MEDIASTINUM AND HILAR STRUCTURES: No masses or contour abnormalities. HEART AND VASCULAR STRUCTURES: Heart normal size. No evidence for failure. BONES: No acute findings. HARDWARE: None in the chest. OTHER: No other significant finding. IMPRESSION: NO ACUTE RADIOGRAPHIC FINDING IN THE CHEST. TECHNICAL DOCUMENTATION: JOB ID: [id number] [employer]- All Rights Reserved Reading location - IP/workstation name: [email or web address]
== END 2019-01-25 16:30 | disposition home or self-care (01) ==
LOC: ER 14:51
DX: J06.9 Acute upper respiratory infection, unspecified (principal); R09.81 Nasal congestion; Z87.442 Personal history of urinary calculi
CPT/HCPCS: 71046; 99283

== ENCOUNTER → 2019-05-24 | Outpatient (CLI) | payer SELFPAY ==
--- NOTE | 2019-05-24 14:02 | RADIOLOGY REPORT (SQ) ---
EXAM DESCRIPTION: U/S [id number] TRNABD 1GES W/ODOP COMPLETED DATE/TIME: 05/24/2019 1:14 pm REASON FOR STUDY: ENCTR FOR SUPERVISION OF OTHER NORMAL , 1ST TRIMESTER (Z34.81) Z34.81 EN COUNTER FOR SUPRVSN OF NORMAL , FIRST TRIM COMPARISON: None. TECHNIQUE: Transabdominal static and realtime grayscale images acquired of the pelvis. Additional se lected spectral and color Doppler images recorded. All images stored on PACs. [facility]: Not available. CLINICAL DATES: Unknown. LIMITATIONS: None. FINDINGS: FETUS: Single Living intrauterine . ULTRASOUND EGA: 10 weeks 3 days. ULTRASOUND AGUSTIN: 12/17/2019 EFW: Not applicable less than 20 weeks. CRL: 3.58 cm. FHR: 163 beats per minute. AMNIOTIC FLUID: Adequate amount. PLACENTA: Not yet developed due to early gestation. SUBCHORIONIC BLEED: No. SIZE OF BLEED: Not applicable. UTERUS: No masses. No anomalies. CERVICAL LENGTH: 2.1 cm. Closed. RIGHT ADNEXA: Normal ovary with normal vascular flow. No adnexal free fluid. No adnexal masses. LEFT ADNEXA: Normal ovary with normal vascular flow. No adnexal free fluid. No adnexal masses. FREE FLUID: None. OTHER: No other significant finding. IMPRESSION: LIVING INTRAUTERINE . EGA 10 WEEKS 3 DAYS. Trimester of : First trimester - 0 to 13 weeks. TECHNICAL DOCUMENTATION: JOB ID: [id number] [employer]- All Rights Reserved rev Reading location - IP/workstation name: [email or web address]
== END ==
LOC: RAD 12:43
PROVIDERS: ATTEND Midwife
DX: Z34.81 Encounter for supervision of other normal pregnancy, first trimester (principal); Z3A.10 10 weeks gestation of pregnancy
CPT/HCPCS: 76801

== ENCOUNTER 2019-05-30 04:34 | Emergency (ER) | payer SELFPAY ==
[2019-05-30 05:34] LABS: A TYPE INFLUENZA AG NEGATIVE (NEGATIVE); B INFLUENZA AG POSITIVE (NEGATIVE)
[2019-05-30] MEDS ORDERED: OSELTAMIVIR PHOSPHATE 75 MG CAPSULE PO ONE (07:53)
[2019-05-30] MEDS ORDERED: ONDANSETRON 4 MG TAB.RAPDIS PO ONE (08:00)
[2019-05-30 08:19] VITALS: BP 114/66
--- NOTE | 2019-05-31 11:17 | ER Document Report ---
Entered by MARGARITO FONTAINE SCRIBE 05/30/19 0807 Acting as scribe for:JOEZF VARELA IV, MD ED General - General Chief Complaint: Flu Symptoms Stated Complaint: FLU SYMPTOMS Time Seen by Provider: 05/30/19 07:39 Primary Care Provider: GENEVA BRAUN MD [ACTIVE STAFF] - Follow up as needed Notes: This 29 year old female patient presents to the emergency department today with complaints of flu-like symptoms for the past 3 days. Patient has complaints of a cough, congestion, runny nose, and fever. Patient is 11 weeks and was exposed by her daughter having the flu from her daycare. TRAVEL OUTSIDE OF THE [place] IN LAST 30 DAYS: No - Related Data Allergies/Adverse Reactions: latex [Latex] Allergy (Severe, Verified 01/20/19 14:37) Hives hydrocodone bitartrate [From Vicodin] Allergy (Intermediate, Verified 01/20/19 14:37) VOMITING,hives Home Medications: vitamins Past Medical History - General Information source: Patient - Social History Smoking Status: Never Smoker Family History: Reviewed & Not Pertinent Patient has suicidal ideation: No Patient has homicidal ideation: No Renal/ Medical History: Reports: Hx Kidney Stones - litho GI Medical History: Reports: Hx Gastroesophageal Reflux Disease - with Past Surgical History: Reports: Hx Section - Immunizations Immunizations up to date: Yes Hx Diphtheria, Pertussis, Tetanus Vaccination: No Review of Systems - Review of Systems Constitutional: See HPI, Fever EENT: See HPI, Nose congestion, Nose discharge Cardiovascular: No symptoms reported Respiratory: See HPI, Cough Gastrointestinal: No symptoms reported Genitourinary: No symptoms reported Female Genitourinary: See HPI, Musculoskeletal: No symptoms reported Skin: No symptoms reported Hematologic/Lymphatic: No symptoms reported Neurological/Psychological: No symptoms reported -: Yes All other systems reviewed and negative Physical Exam - Vital signs Vitals: Temp Pulse Resp BP Pulse Ox 97.9 F 78 16 124/78 98 05/30/19 04:43 05/30/19 04:43 05/30/19 04:43 05/30/19 04:43 05/30/19 04:43 Interpretation: Normal - General General appearance: Appears well, Alert - HEENT Head: Normocephalic, Atraumatic Eyes: Normal Pupils: PERRL - Respiratory Respiratory status: No respiratory distress Chest status: Nontender Breath sounds: Normal Chest palpation: Normal - Cardiovascular Rhythm: Regular Heart sounds: Normal auscultation Murmur: No - Abdominal Inspection: Gravid female Distension: No distension Bowel sounds: Normal Tenderness: Nontender Organomegaly: No organomegaly - Back Back: Normal, Nontender - Extremities General upper extremity: Normal inspection. No: Edema General lower extremity: Normal inspection. No: Edema - Neurological Neuro grossly intact: Yes Cognition: Normal Orientation: AAOx4 Himanshu Coma Scale Eye Opening: Spontaneous [place] Coma Scale Verbal: Oriented Himanshu Coma Scale Motor: Obeys Commands Himanshu Coma Scale Total: 15 Speech: Normal - Psychological Associated symptoms: Normal affect, Normal mood - Skin Skin Temperature: Warm Skin Moisture: Dry Skin Color: Normal Course - Re-evaluation Re-evalutation: 05/30/19 08:01 Results of ED MSE discussed with patient. All questions were answered prior to discharge. Emergency signs and symptoms, reasons to return to the emergency department discussed with patient. Given that the patient is and within the 72-hour window to start treatment, this MD is going to start the patient on Tamiflu and give her prescription. - Vital Signs Vital signs: Temp Pulse Resp BP Pulse Ox 98.0 F 101 H 18 114/66 100 05/30/19 08:09 05/30/19 08:09 05/30/19 08:09 05/30/19 08:09 05/30/19 08:09 Discharge - Discharge Clinical Impression: Influenza B Condition: Good Disposition: HOME, SELF-CARE Additional Instructions: Return to the Emergency Department without delay if any worse. HOME CARE INSTRUCTIONS & INFORMATION: Thank you for choosing us for your medical needs. We hope you're satisfied with the care you received. After you leave, you must properly care for your problem and, at the same time, observe its progress. Any condition can change. Some illnesses can change rapidly over hours or days. If your condition worsens, return to the Emergency Department or see your physician promptly. ABOUT YOUR X-RAYS AND EKG'S: If you had an EKG or X-rays taken, they have been read by the Emergency Physician. The X-rays and EKG's will also be read by a Radiologist or Boilermaker within 24 hours. If discrepancies are noted, you will be notified by telephone. Please be certain the ED has a correct telephone number & address where you can be reached. Also, realize that some fractures or abnormalities do not show up on initial X-rays. If your symptoms continue, see your physician. ABOUT YOUR LABORATORY TEST: If you had laboratory tests, the results have been reviewed by the Emergency Physician. Some test results (for example cultures) may not be available for several days. You will be contacted if any test result shows you need additional treatment. Please be certain the ED has a correct telephone number and address where you can be reached. ABOUT YOUR MEDICATIONS: You will receive instructions on how to take your medicine on the prescription label you receive. Additional information may be provided by the Pharmacy. If you have questions afterwards, call the ED for clarification or further instructions. Some prescribed medications may cause drowsiness. Do not perform tasks such as driving a car or operating machinery without consulting your Pharmacist. If you feel you need a refill of pain medication, your condition will need re-evaluation. Please do not call for a refill of any medication. ABOUT YOUR SIGNATURE: Signature of this document acknowledges to followin. Understanding that you received emergency treatment and that you may be released before al medical problems are known or treated. Please be certain the ED has a correct phone number & address where you can be reached. 2. Acknowledgement that you will arrange for follow-up care as recommended. 3. Authorization for the Emergency Physician to provide information to your follow-up Physician in order to maximize your care. AT ANY TIME, IF YOUR SYMPTOMS CHANGE SIGNIFICANTLY OR WORSEN OR YOU DEVELOP NEW SYMPTOMS, RETURN TO THE EMERGENCY DEPARTMENT IMMEDIATELY FOR RE-EVALUATION. OUR GOAL IS TO PROVIDE EXCELLENT MEDICAL CARE! WE HOPE THAT WE HAVE MET YOUR EXPECTATIONS DURING YOUR EMERGENCY DEPARTMENT VISIT AND THAT YOU FEEL YOU HAVE RECEIVED EXCELLENT CARE! Influenza What are conditions that should receive medical attention? The development of difficulty breathing. Lip color changes to blue or purple. Persistent vomiting and unable to keep liquids down with signs of dehydration such as: dizziness when standing, unable to urinate, or if child/infant is crying no tears are noticed. Is less responsive than normal or becomes confused. How do I decrease the spread of flu in my home? Taking care of the sick patient at home: Keep the sick person in a room separate from the common areas of the house. Keep the "sickroom" door closed. If the person with the flu needs to leave the home, they should cover their nose/mouth when coughing or sneezing and wear a disposable (surgical) mask if available. These masks may be available at your local pharmacy, medical supply and hardware store. If the sick person is in common areas of the house, have them wear a surgical mask. If possible, have the sick person use a separate bathroom that should be cleaned daily with a household disinfectant. If you are the caregiver: Avoid being face to face with the sick adult person as much as possible. Try to stay at least 6 feet away and wear a disposable surgical mask when possible. When holding small children who are sick, place their chin on your shoulder so that they will not cough in your face. Wash your hands after you touch the sick person or handle their tissues and laundry. Wear a mask if you leave home, as you may be infected from taking care of someone and not know it yet. Watch yourself and others in the home for flu symptoms and contact your doctor if symptoms occur. NOTE: Antiviral medication used to reduce the symptoms of the flu works only if taken within 48 hours, and best within 24 hours of symptom onset. Household Cleaning, laundry and waste disposal: Tissues and other disposable items used by the sick person should be thrown away in the trash. Wash your hands after touching these used items. No special waste disposal is required. Keep surfaces (especially bedside tables, bathroom surfaces, and toys for children) clean by wiping them down with a safe household disinfectant according to the directions on the product label. Per CDC advice, most people will not receive testing to confirm flu. Also based on the person's health history and onset of symptoms, not all patients will receive prescriptions for antiviral medications. If you have questions related to this, please ask your healthcare provider. For more information, you can call the Centers for Disease Control and Prevention (CDC) Hotline at 1-132-KHH-INFO This line is available in Wolof and [place], 24 hours a day, 7 days a week. Or www.[employer] or www.cdc.gov Flu-Like Illness Home Instructions: The influenza virus infection can cause a wide rage of symptoms, including: Fever, cough, sore throat, body aches, headaches, chills, fatigue, with some patients reporting diarrhea and vomiting Like seasonal influenza A, H1N1 ("swine flu")in humans can vary in severity from mild to severe Severe illness with pneumonia, respiratory failure and even is possible Certain groups might be more likely to develop a severe illness from H1N1 infection. Sometimes bacterial infections may occur at the same time as or after infection with influenza viruses and lead to pneumonias, ear infections, or sinus infections. How Flu Spreads The main way that influenza viruses spread is through respiratory droplets of coughs and sneezes. This can happen when someone with the infection coughs or sneezes and the particles fly through the air and land on other people and surfaces. If the person covers their mouth and nose with their hand but does not wash their hands immediately, then these germs are passed onto the next object that they touch. People with Influenza A or suspected H1N1 (swine flu) who are cared for at home should: Check with their doctor about any special care that they might need if they are or have a health condition such as diabetes, heart disease, asthma or emphysema. Also, limit caregiver to one (if possible). women or those with chronic health conditions should not take care of the flu patient unless necessary. Check with their doctor about whether or not medications are needed that may lessen the symptoms of the flu. Stay at home until 24 hours fever free without the use of fever reducing medication. Get plenty of rest and avoid other healthy people in your home. Drink plenty of clear liquids to keep from getting dehydrated. Take medications like Tylenol (Acetaminophen), Advil/Motrin/Nuprin (Ibuprofen) or Aleve (Naproxen) for fevers and aches. All children under the age of 18 years of age should not take aspirin or products containing aspirin (e.g. Pepto Bismol), as this can cause a rare serious illness called Stoney Syndrome. Over the counter medications for flu and colds may help, but it is very important to follow the package directions. Remember that the medicine may help the symptoms, but it will not help prevent others from getting sick if they are around you. Cover coughs and sneezes using your bent arm. Clean hands with soap and wa ter or an alcohol-based hand rub often, especially after using tissues to cough or sneeze. Encourage hand washing frequently for all people living in the home! The sick person should not have visitors other than caregivers. Encourage concerned loved ones to call instead of visit. Avoid close contact with others-do not go to work or school while sick. Prescriptions: Oseltamivir Phosphate [Tamiflu 75 mg Capsule] 75 mg PO BID 5 Days #10 capsule Forms: Return to Work Referrals: GENEVA BRAUN MD [ACTIVE STAFF] - Follow up as needed I personally performed the services described in the documentation, reviewed and edited the documentation which was dictated to the scribe in my presence, and it accurately records my words and actions.
== END 2019-05-30 08:19 | disposition home or self-care (01) ==
LOC: ER 04:34
DX: O99.511 Diseases of the respiratory system complicating pregnancy, first trimester (principal); J10.1 Influenza due to other identified influenza virus with other respiratory manifestations; O26.891 Other specified pregnancy related conditions, first trimester; R05 Cough; R09.81 Nasal congestion; R09.89 Other specified symptoms and signs involving the circulatory and respiratory systems; R50.9 Fever, unspecified; Z79.899 Other long term (current) drug therapy; Z3A.11 11 weeks gestation of pregnancy; Z91.040 Latex allergy status; Z88.6 Allergy status to analgesic agent; Z88.5 Allergy status to narcotic agent
CPT/HCPCS: 99283; 87070; 87880; 87804; S0119; J3490

== ENCOUNTER 2019-12-21 11:26 | Outpatient (CLI) | payer MEDICAID | END 2019-12-21 12:41 | disposition home or self-care (01) | LOC: LC 11:26 | PROVIDERS: ATTEND Obstetrics & Gynecology | DX: Z34.93 Encounter for supervision of normal pregnancy, unspecified, third trimester (principal) | CPT/HCPCS: 59025; 82962 ==

== ENCOUNTER 2019-12-22 09:31 | Inpatient (IN) | payer MEDICAID ==
[2019-12-23] MEDS ORDERED: CEFAZOLIN 1 GM/D5W RTU 1 GM/50 ML RTUPB IV PRN (11:21)
[2019-12-23 13:25] LABS: APPEARANCE,URINE SLIGHTLY-CLOUDY; BILIRUBIN,URINE NEGATIVE (NEGATIVE); COLOR,URINE YELLOW; GLUCOSE, URINE NEGATIVE (NEGATIVE); KETONES,URINE NEGATIVE (NEGATIVE); LEUKOCYTE ESTERASE,URINE LARGE (NEGATIVE); NITRITE,URINE NEGATIVE (NEGATIVE); PROTEIN,URINE NEGATIVE (NEGATIVE); URINE SPECIFIC GRAVITY 1.011; UROBILINOGEN,URINE NEGATIVE mg/dL (<2.0)
[2019-12-23 13:42] LABS: URINE AMPHETAMINES SCREEN NEGATIVE; URINE BARBITURATES SCREEN NEGATIVE; URINE BENZODIAZEPINES SCREEN NEGATIVE; URINE COCAINE SCREEN NEGATIVE; URINE MARIJUANA (THC) SCREEN NEGATIVE; URINE METHADONE SCREEN NEGATIVE; URINE PHENCYCLIDINE SCREEN NEGATIVE
[2019-12-23 13:44] LABS: ABSOLUTE BASOPHILS # (AUTO) 0.1 10^3/uL (0.0-0.2); ABSOLUTE EOSINOPHILS # (AUTO) 0.1 10^3/uL (0.0-0.6); ABSOLUTE LYMPHOCYTES (AUTO) 2.4 10^3/uL (0.5-4.7); ABSOLUTE MONOCYTES (AUTO) 1.2 10^3/uL (0.1-1.4); ABSOLUTE NEUT (AUTO) 12.8 10^3/uL (1.7-8.2); BASOPHILS % (AUTO) 0.4 % (0-2); EOSINOPHILS % (AUTO) 0.4 % (0-6); LYMPHOCYTES % (AUTO) 14.6 % (13-45); MEAN CORPUSCULAR HGB CONC 32.3 g/dL (32.0-36.0); MEAN CORPUSCULAR VOLUME 80 fl (80-97); PLATELET COUNT 203 10^3/uL (150-450); RED CELL DISTRIBUTION WIDTH 15.7 % (11.5-14.0); SEGMENTED NEUTROPHILS % (AUTO) 77.6 % (42-78); TOTAL CELLS COUNTED % (AUTO) 100 %; WHITE BLOOD COUNT 16.4 10^3/uL (4.0-10.5)
[2019-12-23] MEDS ORDERED: RINGERS SOLUTION,LACTATED 1,000 ML IV ONE (14:30)
[2019-12-23] MEDS ORDERED: RINGERS SOLUTION,LACTATED 1,000 ML IV PRN ×2 (14:30→15:23)
--- NOTE | 2019-12-23 14:48 | Non Stress Test Report ---
Non Stress Test Datetime Report Generated by CPN: 12/23/2019 14:47 DEMOGRAPHIC Test Number: 1 VITAL SIGNS Temperature - NST: 98.7 Pulse - NST: 75 RESP - NST: 18 NBPSYS NST: 106 NBPDIA NST: 59 MONITORING Monitor Explained: Monitor Explained; Test Explained; Patient Verbalized Understanding Time on Monitor: 12/21/2019 11:37 Time off Monitor: 12/21/2019 12:35 NST Duration: 58 NST INTERVENTIONS NST Interventions: PO Hydration; Reposition Patient Physician Notified NST: [id number],cnm BABY A: [id number] BABY A Movement : Present Contraction Frequency : irregular FHR Baseline : 135 Accelerations : 15X15 Decelerations : None Variability : Moderate 6-25bpm NST Review: Meets Criteria for Reactive NST NST Review and Verified By : JONNATHAN Batista NST Results: Reactive NST REPORT Report Trigger: Send Report
[2019-12-23] MEDS ORDERED: MIDAZOLAM 2 MG/2 ML INJ ONE (15:04)
[2019-12-23] MEDS ORDERED: OXYTOCIN 10 UNIT/ML VIAL ONE (15:04)
[2019-12-23] MEDS ORDERED: KETOROLAC TROMETHAMINE INJ/PF 30 MG/1 ML SDV ONE (15:04)
[2019-12-23] MEDS ORDERED: FENTANYL CITRATE INJ/PF 100 MCG/2 ML AMPUL ONE (15:04)
[2019-12-23] MEDS ORDERED: OXYTOCIN/0.9 % SODIUM CHLORIDE 30 UNIT/500 ML RTUINJ ONE (15:04)
[2019-12-23] MEDS ORDERED: ONDANSETRON HCL INJ/PF 4 MG/2 ML SDV ONE (15:05)
[2019-12-23] MEDS ORDERED: EPHEDRINE SULFATE INJ 50 MG/1 ML AMPULE ONE (15:05)
[2019-12-23] MEDS ORDERED: ACETAMINOPHEN 1,000 MG/100 ML RTUPB IV ONE (15:05)
[2019-12-23] MEDS ORDERED: MEASLES,MUMPS&RUBELLA VACC/PF 0.5 ML VIAL SUBCUT PRN (15:23)
[2019-12-23] MEDS ORDERED: OXYCODONE-ACETAMINOPHEN 5-325 MG TABLET PO PRN (15:23)
[2019-12-23] MEDS ORDERED: HYDROMORPHONE HCL INJ/PF 2 MG/ML AMPULE IV PRN (15:23)
[2019-12-23] MEDS ORDERED: ACETAMINOPHEN 325 MG TABLET PO PRN (15:23)
[2019-12-23] MEDS ORDERED: DIPH/PERTUSS(ACELL)/TETANUS VAC/PF 0.5 ML SYR (>=10YO) IM PRN (15:23)
[2019-12-23] MEDS ORDERED: OXYTOCIN/0.9 % SODIUM CHLORIDE 30 UNIT/500 ML RTUINJ IV PRN (15:23)
[2019-12-23] MEDS ORDERED: PROMETHAZINE HCL INJ 25 MG/1 ML VIAL IV PRN (15:23)
--- NOTE | 2019-12-23 16:30 | Operative Report ---
Operative Report DATE OF SURGERY: 12/23/19 PREOPERATIVE DIAGNOSIS: macrosomia repeat POSTOPERATIVE DIAGNOSIS: Same OPERATION: Repeat via low transverse uterine incision SURGEON: JIMI PATTON ANESTHESIA: Spinal TISSUE REMOVED OR ALTERED: Placenta COMPLICATIONS: None ESTIMATED BLOOD LOSS: 400 cc INTRAOPERATIVE FINDINGS: Viable male crying at delivery weight 10 pounds 15 ounces PROCEDURE: Patient was taken to the OR and placed in supine position after her spinal ane sthesia. She is prepared and draped in sterile fashion. [place] was placed for drainage of the bladder. Low transverse incision was made and carried down the level of the fascia. The fascial incision was made with knife and extended bilaterally with curved Carter scissors. The fascia was off the rectus muscles using sharp and blunt dissection. The rectus muscles are in the midline. The peritoneum was entered without incident. Bladder blade was placed in uterine segment was identified. A low transverse incision was made creating a bladder flap. Bladder blade was placed low transverse uterine incision was made with the knife and extended with fingertips. The baby was delivered with some fundal pressure. Mouth and nose were suctioned free. The cord is doubly clamped and cut. Baby is passed off to the manager search engine in attendance. The placenta was manually extracted with trailing membranes. The uterus was externalized wrapped in a moist lap sponge. Uterine contents wiped free. Uterus was closed with a running locking layer of 0 chromic suture using the second layer to imbricate the first completing a double layer closure of the uterus. The serosa was closed with a running 2-0 chromic stitch. The pelvis was irrigated and suctioned free of fluid the uterus was replaced in the abdomen. The abdominal wall peritoneum was closed with running 2-0 chromic stitch. Fascia was closed with a running 0 Vicryl in 2 segments. Kane's layer was brought together with 0 plain gut stitch and the skin was closed with running subcuticular 4-0 undyed Vicryl stitch. The wound was dressed mother and baby did well.
[2019-12-23] MEDS ORDERED: HYDROMORPHONE HCL INJ/PF 2 MG/ML AMPULE ONE (17:26)
[2019-12-23] MEDS ORDERED: OXYCODONE-ACETAMINOPHEN 5-325 MG TABLET ONE (20:08)
[2019-12-23] MEDS: OXYCODONE-ACETAMINOPHEN 5-325 MG TABLET PO PRN (20:10)
[2019-12-23] MEDS ORDERED: KETOROLAC TROMETHAMINE INJ/PF 30 MG/1 ML SDV IV SCH (22:00)
[2019-12-23] MEDS: KETOROLAC TROMETHAMINE INJ/PF 30 MG/1 ML SDV IV SCH (23:30)
[2019-12-24] MEDS: DOCUSATE SODIUM 100 MG CAPSULE PO SCH ×3 (00:19→18:47)
[2019-12-24] MEDS: OXYCODONE-ACETAMINOPHEN 5-325 MG TABLET PO PRN ×4 (03:53→19:11)
[2019-12-24] MEDS: SIMETHICONE 80 MG TAB.CHEW PO PRN ×2 (03:55→14:50)
[2019-12-24 07:19] LABS: HEMATOCRIT 31.6 % (36.0-47.0); HEMOGLOBIN 10.5 g/dL (12.0-15.5); MEAN CORPUSCULAR HEMOGLOBIN 26.6 pg (27.0-33.4); MEAN CORPUSCULAR HGB CONC 33.2 g/dL (32.0-36.0); MEAN CORPUSCULAR VOLUME 80 fl (80-97); PLATELET COUNT 153 10^3/uL (150-450); RED BLOOD COUNT 3.94 10^6/uL (3.72-5.28); RED CELL DISTRIBUTION WIDTH 15.2 % (11.5-14.0); WHITE BLOOD COUNT 15.9 10^3/uL (4.0-10.5)
[2019-12-24] MEDS: KETOROLAC TROMETHAMINE INJ/PF 30 MG/1 ML SDV IV SCH (08:23)
[2019-12-24] MEDS: PRENATAL VITAMIN W DHA CAPSULE PO SCH (09:06)
--- NOTE | 2019-12-24 09:55 | PDOC PROGRESS REPORT ---
Subjective-OB Progress Note for:: 12/24/19 Subjective: Pt sitting up on side of bed, eating reg diet. Reports pain at incision and gas. Recently given pain meds. Voiding without difficulty, bleeding normal. Physical Exam (OB) Vital Signs: Temp Pulse Resp BP Pulse Ox 98.4 F 84 16 116/67 100 12/24/19 07:23 12/24/19 07:23 12/24/19 07:23 12/24/19 07:23 12/24/19 07:23 Intake & Output 12/23/19 12/24/19 12/25/19 06:59 06:59 06:59 Output Total 1100 Balance -1100 Weight 80.739 kg - Dressing Removed: No Incision: Dressing Closure Type: Surgical Glue - Maternal Morbidity 59. Maternal Morbidity (serious complications experinced by the mother associated with labor and delivery: None of the above - Lochia Lochia Amount: Small 10-25 ml Lochia Color: Rubra/Red - Abdomen Description: Tender, Soft Hernia Present: No Fundal Description: Firm, Midline Fundal Height: u/u - u/2 Objective-Diagnostic Laboratory: 12/24/19 06:46 12/23/19 12/23/19 12/23/19 13:00 13:16 13:36 WBC 16.4 H RBC 4.60 Hgb 12.0 Hct 37.0 MCV 80 MCH 26.0 L MCHC 32.3 RDW 15.7 H Plt Count 203 Seg Neutrophils % 77.6 Urine Color YELLOW Urine Appearance SLIGHTLY-CLOUDY Urine pH 7.0 Ur Specific [place] 1.011 Urine Protein NEGATIVE Urine Glucose (UA) NEGATIVE Urine Ketones NEGATIVE Urine Blood NEGATIVE Urine Nitrite NEGATIVE Ur Leukocyte Esterase LARGE H Blood Type O NEGATIVE Antibody Screen POSITIVE 12/24/19 06:46 WBC 15.9 H RBC 3.94 Hgb 10.5 L Hct 31.6 L MCV 80 MCH 26.6 L MCHC 33.2 RDW 15.2 H Plt Count 153 Seg Neutrophils % Urine Color Urine Appearance Urine pH Ur Specific [place] Urine Protein Urine Glucose (UA) Urine Ketones Urine Blood Urine Nitrite Ur Leukocyte Esterase Blood Type Antibody Screen Assessment and Plan(PN) - Assessment and Plan (1) macrosomia Qualifiers: Fetus number: single or unspecified fetus Trimester: third trimester Qualified Code(s): O36.63X0 - Maternal care for excessive growth, third trimester, not applicable or unspecified Is this a current diagnosis for this admission?: Yes (2) delivery delivered Is this a current diagnosis for this admission?: Yes - Time Spent with Patient Time with patient: Less than 15 minutes Medications reviewed and adjusted accordingly: Yes - Disposition Anticipated Discharge Disposition: Home, Self Care Anticipated Discharge Timeframe: within 24 hours
--- NOTE | 2019-12-24 13:17 | Birth Certificate Data ---
Cert Data Datetime Report Generated by CPN: 12/24/2019 13:17 Mother's Height 50b. Height Inches: 65 (12/21/2019 11:38:QS system process) Mother's Weight 51b. Weight at Time of Delivery: 178 (12/24/2019 10:16:QS system process) 51b. Weight at Time of Delivery: 178 (12/23/2019 20:11:QS system process) 51b. Weight at Time of Delivery: 178 (12/23/2019 13:43:QS system process) 51b. Weight at Time of Delivery: 174 (12/21/2019 12:01:QS system process) 51b. Weight at Time of Delivery: 174 (12/21/2019 11:38:QS system process) Onset of Labor 56a. PROM >12 Hrs: 0.00 (12/21/2019 11:48:QS system process) 57a. Induction of Labor: N/A (12/21/2019 11:48:Makenna Grove RN) 57c. Non-Vertex Presentation A: Vertex (12/21/2019 11:48:Makenna Grove RN) 57d. Steroids - Lung Mat: None (12/21/2019 11:48:Makenna Grove RN) 57d. Steroids - Lung Mat: Not Applicable (12/21/2019 11:48:Makenna Grove RN) 57g. Moderate/Heavy Meconium: Clear (12/21/2019 11:48:Makenna Grove RN) 57h. Intolerance of Labor: Repeat Elective (12/21/2019 11:48:Makenna Grove RN) 57i. Epidural/Spinal Anesthesia: None (12/21/2019 11:48:Makenna Grove RN) Method of Delivery 58a. Forceps - Unsuccessful A: N/A (12/21/2019 11:48:Makenna Grove RN) 58b. Vacuum - Unsuccessful A: N/A (12/21/2019 11:48:Makenna Grove RN) 58c. Presentation at 58c. Presentation at - A : Vertex (12/21/2019 11:48:Makenna Grove RN) 58c. Presentation at - A : N/A (12/21/2019 11:48:Makenna Grove RN) 58c. Presentation at - A : Cephalic (12/21/2019 11:48:Makenna Grove RN) Final Route and Method of Del 58d. Baby A Route/Delivery: (12/21/2019 11:48:Makenna Grove RN) 58e. Trial of Labor Attempted: No (12/21/2019 11:48:Makenna Grove RN) 58e. Trial of Labor Attempted A: N/A (12/21/2019 11:48:Makenna Grove RN) 58e. Trial of Labor Attempted B: N/A (12/21/2019 11:48:Makenna Grove RN) Maternal Morbidity 59b. 3rd or 4th Degree Lacs: None (12/21/2019 11:48:Makenna Grove RN) 59b. 3rd or 4th Degree Lacs: N/A (12/21/2019 11:48:Makenna Grove RN) Birthweight Baby A: 4950 (12/21/2019 11:48:Annmarie Hernández RN) 60a. Pounds : 10 (12/21/2019 11:48:QS system process) 60b. Ounces: 15 (12/21/2019 11:48:QS system process) 61. GA at Delivery Baby A: 40.6 (12/21/2019 11:48:Makenna Grove RN) : Full Term- 39- 40.6 Weeks (12/21/2019 11:48:QS system process) 62a. 5 Minute Baby A: 9 (12/21/2019 11:48:QS system process)
[2019-12-24] MEDS: IBUPROFEN 800 MG TABLET PO SCH ×2 (14:50→20:42)
[2019-12-25] MEDS: OXYCODONE-ACETAMINOPHEN 5-325 MG TABLET PO PRN ×4 (00:47→21:44)
[2019-12-25] MEDS: SIMETHICONE 80 MG TAB.CHEW PO PRN (00:48)
[2019-12-25] MEDS: IBUPROFEN 800 MG TABLET PO SCH ×4 (02:49→19:56)
--- NOTE | 2019-12-25 07:53 | PDOC DISCHARGE SUMMARY ---
Impression - Admit/DC Date/PCP Admission Date/Primary Care Provider: 12/23/19 12:38 Discharge Date: 12/25/19 - Discharge Diagnosis (1) macrosomia Is this a current diagnosis for this admission?: Yes (2) delivery delivered Is this a current diagnosis for this admission?: Yes - Additional Information Resuscitation Status: Full Code Discharge Diet: Regular Discharge Activity: Balance Activity w/Rest, No Lifting Over 10 Pounds, No Lifting/Push/Pulling, Pelvic Rest, Slowly Increase Activity, No tub bath Home Medications: Vit #76/Iron,Carb/FA [Pnv 29-1 Tablet] 1 each PO DAILY 02/20/15 Glyburide/Metformin HCl [Glyburid-Metformin 1.25-250 mg] 2.5 mg PO DAILY 12/21/19 HPI Gestational Age: 39 Reason(s) for Admission: Ceasarean Section-Repeat Procedures: None Intrapartum Procedure(s): : Low Cervical, Transverse Hospital Course 59. Maternal Morbidity (serious complications experinced by the mother associated with labor and delivery: None of the above Results Laboratory Results: WBC 15.9 10^3/uL (4.0-10.5) H 12/24/19 06:46 RBC 3.94 10^6/uL (3.72-5.28) 12/24/19 06:46 Hgb 10.5 g/dL (12.0-15.5) L 12/24/19 06:46 Hct 31.6 % (36.0-47.0) L 12/24/19 06:46 MCV 80 fl (80-97) 12/24/19 06:46 MCH 26.6 pg (27.0-33.4) L 12/24/19 06:46 MCHC 33.2 g/dL (32.0-36.0) 12/24/19 06:46 RDW 15.2 % (11.5-14.0) H 12/24/19 06:46 Plt Count 153 10^3/uL (150-450) 12/24/19 06:46 Lymph % (Auto) 14.6 % (13-45) 12/23/19 13:16 [place] % (Auto) 7.0 % (3-13) 12/23/19 13:16 Eos % (Auto) 0.4 % (0-6) 12/23/19 13:16 Baso % (Auto) 0.4 % (0-2) 12/23/19 13:16 Absolute Neuts (auto) 12.8 10^3/uL (1.7-8.2) H 12/23/19 13:16 Absolute Lymphs (auto) 2.4 10^3/uL (0.5-4.7) 12/23/19 13:16 Absolute Monos (auto) 1.2 10^3/uL (0.1-1.4) 12/23/19 13:16 Absolute Eos (auto) 0.1 10^3/uL (0.0-0.6) 12/23/19 13:16 Absolute Basos (auto) 0.1 10^3/uL (0.0-0.2) 12/23/19 13:16 Seg Neutrophils % 77.6 % (42-78) 12/23/19 13:16 POC Glucose 78 mg/dL (70-110) 12/23/19 19:57 Urine Color YELLOW 12/23/19 13:00 Urine Appearance SLIGHTLY-CLOUDY 12/23/19 13:00 Urine pH 7.0 (5.0-9.0) 12/23/19 13:00 Ur Specific [place] 1.011 12/23/19 13:00 Urine Protein NEGATIVE mg/dL (NEGATIVE) 12/23/19 13:00 Urine Glucose (UA) NEGATIVE mg/dL (NEGATIVE) 12/23/19 13:00 Urine Ketones NEGATIVE mg/dL (NEGATIVE) 12/23/19 13:00 Urine Blood NEGATIVE (NEGATIVE) 12/23/19 13:00 Urine Nitrite NEGATIVE (NEGATIVE) 12/23/19 13:00 Urine Bilirubin NEGATIVE (NEGATIVE) 12/23/19 13:00 Urine Urobilinogen NEGATIVE mg/dL (<2.0) 12/23/19 13:00 Ur Leukocyte Esterase LARGE (NEGATIVE) H 12/23/19 13:00 Urine Ascorbic Acid NEGATIVE (NEGATIVE) 12/23/19 13:00 Urine Opiates Screen NEGATIVE 12/23/19 13:00 Urine Methadone Screen NEGATIVE 12/23/19 13:00 Ur Barbiturates Screen NEGATIVE 12/23/19 13:00 Ur Phencyclidine Scrn NEGATIVE 12/23/19 13:00 Ur Amphetamines Screen NEGATIVE 12/23/19 13:00 U Benzodiazepines Scrn NEGATIVE 12/23/19 13:00 Urine Cocaine Screen NEGATIVE 12/23/19 13:00 U Marijuana (THC) Screen NEGATIVE 12/23/19 13:00 COVID-19 Source NASOPHARYNGEAL 12/17/19 09:04 COVID-19 (MATHEUS) NOT DETECTED 12/17/19 09:04 Blood Type O NEGATIVE 12/23/19 13:36 Antibody Screen POSITIVE 12/23/19 13:36 Antibody Identification RHOGAM INDUCED ANTI-D 12/23/19 13:36 Crossmatch See Detail 12/23/19 13:36 Plan Plan of Treatment: f/u at [facility] as scheduled for incision check Time Spent: Less than 30 Minutes
--- NOTE | 2019-12-25 09:26 | PDOC PROGRESS REPORT ---
Subjective-OB Progress Note for:: 12/25/19 Subjective: Pt having difficulty with self care/ambulation. Needing additional assistance to get out of bed and get to bathroom. Reports difficulty managing pain. Voids without difficulty, bleeding is normal, reg diet with +flatus. She has requested to stay another day. Physical Exam (OB) Vital Signs: Temp Pulse Resp BP Pulse Ox 97.9 F 76 18 103/58 L 98 12/25/19 07:27 12/25/19 07:27 12/25/19 07:27 12/25/19 07:27 12/25/19 07:27 Intake & Output 12/24/19 12/25/19 12/26/19 06:59 06:59 06:59 Intake Total 800 Output Total 1100 800 Balance -1100 0 Weight 80.739 kg - Dressing Removed: No Incision: Well Approximated Closure Type: Surgical Glue - Maternal Morbidity 59. Maternal Morbidity (serious complications experinced by the mother associated with labor and delivery: None of the above - Lochia Lochia Amount: Scant < 10 ml Lochia Color: Rubra/Red - Abdomen Description: Tender, Soft, Flat Hernia Present: No Fundal Description: Firm, Midline Fundal Height: u/3 - u/4 Objective-Diagnostic Laboratory: 12/24/19 06:46 Assessment and Plan(PN) - Assessment and Plan (1) macrosomia Qualifiers: Fetus number: single or unspecified fetus Trimester: third trimester Qualified Code(s): O36.63X0 - Maternal care for excessive growth, third trimester, not applicable or unspecified Is this a current diagnosis for this admission?: Yes (2) delivery delivered Is this a current diagnosis for this admission?: Yes - Time Spent with Patient Time with patient: Less than 15 minutes Medications reviewed and adjusted accordingly: Yes - Disposition Anticipated Discharge Disposition: Home, Self Care Anticipated Discharge Timeframe: within 36 hours
[2019-12-25] MEDS: DOCUSATE SODIUM 100 MG CAPSULE PO SCH ×2 (10:06→17:08)
[2019-12-25] MEDS: PRENATAL VITAMIN W DHA CAPSULE PO SCH (10:08)
[2019-12-26] MEDS: OXYCODONE-ACETAMINOPHEN 5-325 MG TABLET PO PRN ×3 (01:45→13:06)
[2019-12-26] MEDS: IBUPROFEN 800 MG TABLET PO SCH ×3 (02:42→13:07)
[2019-12-26] MEDS: SIMETHICONE 80 MG TAB.CHEW PO PRN (04:57)
[2019-12-26] MEDS: DOCUSATE SODIUM 100 MG CAPSULE PO SCH (09:26)
[2019-12-26] MEDS: PRENATAL VITAMIN W DHA CAPSULE PO SCH (09:27)
[2019-12-26 10:13] VITALS: BP 136/72
--- NOTE | 2019-12-28 07:05 | Delivery Summary ---
Del Sum A-C Datetime Report Generated by CPN: 12/28/2019 07:04 DELIVERY PERSONNEL DELIVERY PERSONNEL: [id number] Delivery Doctor:: Lata Jackson MD Anesthesiologist:: Miguel Del Rio MD SCIENCE EDUCATION PROFESSOR:: Bon Normile, SCIENCE EDUCATION PROFESSOR Labor and Delivery Nurse:: Makenna Grove RN Electronics Engineer:: Makenna Grove RN Neonatal Nurse Practitioner:: LEDY Painter Nursery Nurse:: Annmarie Hernández RN [place] Applier/SCALPER OPERATOR: Kristi Rutledge CST [place] Applier/SCALPER OPERATOR: Anika Alvarenga GAUGE AND WEIGH MACHINE OPERATOR MATERNAL INFORMATION Delivery Anesthesia: Spinal Medications After Delivery: Pitocin 30 Units in 500ml NS/D5W Maternal Complications: None LABOR SUMMARY EDC: 12/17/2019 00:00 Attempted: No Labor Anesthesia: None LABOR INFORMATION Reason for Induction: Not Applicable Oxytocin: N/A Steroids Given: None Reason Steroids Not Administered: Not Applicable MEMBRANES Membranes Rupture Method: Artificial Rupture of Membranes: 12/23/2019 15:52 Length of Rupture (hr): 0.00 Amniotic Fluid Color: Clear Amniotic Fluid Amount: Moderate Amniotic Fluid Odor: None STAGES OF LABOR Stage 3 hr: 0 Stage 3 min: 1 VAGINAL DELIVERY Episiotomy: None Laceration #1: None Laceration Repair: Not Applicable Sponge Count Correct: N/A Sharps Count Correct: N/A CSECTION DELIVERY Primary Indication: Repeat Elective CSection Urgency: Scheduled CSection Incidence: Repeat Labor: N/A Elective: Elective CSection Incision: Lower Uterine Transverse BABY A INFORMATION Delivery Date/Time: 12/23/2019 15:52 Method of Delivery: Nurse Controlled Delivery: No Born in Route : No : N/A Forceps: N/A Vacuum Extraction: N/A Shoulder Dystocia : No PRESENTATION/POSITION BABY A Presentation: Cephalic Cephalic Presentation: Vertex Breech Presentation: N/A PLACENTA INFORMATION BABY A Placenta Delivery Time : 12/23/2019 15:53 Placenta Method of Delivery: Manual Removal Placenta Status: Delivered SCORES BABY A Heart Rate 1 min: >100 bpm Resp Effort 1 min: Good Cry Reflex Irritability 1 min: Cough or Sneeze or Pulls Away Muscle Tone 1 min: Active Motion Color 1 min: Blue/Pale SCORE 1 MIN: 8 Heart Rate 5 min: >100 bpm Resp Effort 5 min: Good Cry Reflex Irritability 5 min: Cough or Sneeze or Pulls Away Muscle Tone 5 min: Active Motion Color 5 min: Body [place], Extremities Blue SCORE 5 MIN: 9 INFORMATION BABY A Gestational Age at Delivery: 40.6 Gestational Status: Full Term- 39- 40.6 Weeks Infant Outcome : Liveborn Infant Condition : Stable Infant Sex: Male WEIGHT/LENGTH BABY A Birthweight (gm): 4950 Weight (lb): 10 Infant Weight (oz): 15 Length (in): 22.25 Infant Length (cm): 56.52 CORD INFORMATION BABY A No. Cord Vessels: 3 Nuchal Cord : Around Neck x2, Tight Cord Blood Taken: Yes-For Eval (Mom's Blood Type - or O+) Suction: None ASSESSMENT BABY A Complications: None Physical Findings at Delivery: Within Normal Limits Infant Respirations: Appears Normal Skin to Skin: No Infant Care By: Kim Hernández RN Transferred To: Nursery BABY B INFORMATION : N/A
== END 2019-12-26 14:17 | disposition home or self-care (01) | DRG 788 ==
LOC: 2S 12-23 12:38
PROVIDERS: ADMIT Obstetrics & Gynecology; ATTEND Obstetrics & Gynecology
PROC: 10D00Z1 Extraction of Products of Conception, Low, Open Approach (ICD-10-PCS; principal; 2019-12-23)
DX: O34.211 Maternal care for low transverse scar from previous cesarean delivery (principal); O36.63X0 Maternal care for excessive fetal growth, third trimester, not applicable or unspecified; O48.0 Post-term pregnancy; O69.1XX0 Labor and delivery complicated by cord around neck, with compression, not applicable or unspecified; N85.8 Other specified noninflammatory disorders of uterus; O24.425 Gestational diabetes mellitus in childbirth, controlled by oral hypoglycemic drugs; O99.02 Anemia complicating childbirth; D64.9 Anemia, unspecified; Z3A.41 41 weeks gestation of pregnancy; Z37.0 Single live birth; Z67.41 Type O blood, Rh negative; Z20.828 Contact with and (suspected) exposure to other viral communicable diseases
CPT/HCPCS: 1961; 36415; 59025; 80307; 81005; 82962; 85025; 85027; 86850; 86870; 86900; 86901; 86920; 86922; 87635; 88307; 94760; 94799; C9803; J0131; J1170; J1885; J2250; J2405; J2590; J3010; J3490; J7120